=== PATIENT | female | born 1995 | race Caucasian/White ===

== ENCOUNTER 2019-01-06 21:05 | Emergency (ER) | payer MEDICAID ==
[~2019-01-06] VITALS: Ht 157.5 cm; Wt 76.4 kg
[2019-01-06 21:16] VITALS: Ht 157.5 cm; Wt 76.4 kg
[2019-01-06] MEDS ORDERED: ZOLOFT50 MG PO (21:19)
[2019-01-06] MEDS ORDERED: KEFLEX500 MG PO (22:47)
[2019-01-06] MEDS ORDERED: HYDROCODON-ACE1 EAC7 PO (22:47)
[2019-01-06 23:07] VITALS: BP 115/68
== END 2019-01-06 23:07 | disposition home or self-care (01) ==
LOC: D.ER 21:05
DX: S61.412A Laceration without foreign body of left hand, initial encounter (principal); W25.XXXA Contact with sharp glass, initial encounter; Y93.89 Activity, other specified; Y92.89 Other specified places as the place of occurrence of the external cause

== ENCOUNTER 2019-01-15 10:02 | Emergency (ER) | payer MEDICAID ==
[~2019-01-15] VITALS: Ht 157.5 cm; Wt 76.4 kg
[~2019-01-15 10:02] MED LIST: HYDROCODON-ACE1 EAC7 PO; KEFLEX500 MG PO; ZOLOFT50 MG PO
[2019-01-15 10:04] VITALS: BP 119/69; Ht 157.5 cm; Wt 76.4 kg
== END 2019-01-15 11:06 | disposition home or self-care (01) ==
LOC: D.ER 10:02
DX: S61.412D Laceration without foreign body of left hand, subsequent encounter (principal); X58.XXXD Exposure to other specified factors, subsequent encounter; Z48.02 Encounter for removal of sutures

== ENCOUNTER 2019-04-23 15:02 | Emergency (ER) | payer MEDICAID ==
[~2019-04-23] VITALS: Ht 157.5 cm; Wt 75.0 kg
[2019-04-23 15:20] VITALS: Ht 157.5 cm; Wt 75.0 kg
[2019-04-23] MEDS ORDERED: BUPROPION XL150 MG PO (15:22)
[2019-04-23] MEDS ORDERED: BUTALB-APAP-CA1 EACH PO (18:57)
[2019-04-23 20:00] VITALS: BP 112/71
== END 2019-04-23 20:00 | disposition home or self-care (01) ==
LOC: D.ER 15:02
DX: G43.909 Migraine, unspecified, not intractable, without status migrainosus (principal)